=== PATIENT | female | born 2000 | race African-American/Black ===

== ENCOUNTER 2025-10-24 14:07 | Emergency (ER) | payer OTHER, MEDICAID, SELFPAY ==
[2025-10-24 14:27] VITALS: BP 102/67; PULSE 79; RESP 20; TEMP 36.6; O2SAT 100
--- NOTE | 2025-10-24 14:32 | ED.URI ---
HPI - URI/Sore Throat General Chief Complaint: Upper Respiratory Infection Stated Complaint: Sinus/ Source: patient Mode of arrival: ambulatory Limitations: no limitations History of Present Illness HPI Narrative: this is a 25 y/o female that is 14 weeks pregant patient, sees [facility], patient states 3 days she has had nausea and diarrhea yesterday. No vomiting. patient reports having been able to keep liquids down yesterday and was able to eat chicken last pm, she was then able to eat some noodles late/early am. she states she did not have any diarrhea since yesterday afternoon. patient reports she is doing otherwise ok. No vaginal discharge, no bleeding. she is not nauseated or vomiting. no fever. patient denies any distress at all. She has been able to drink and eat today with no distess. has been feeling baby move. MD elicited complaint: other (nausea and diarrhea) Consistency: constant Severity: mild Exacerbating factors: nothing Relieving factors: nothing Context: sick contacts Associated symptoms: denies other symptoms Treatments prior to arrival: none Related Data Allergies Allergy/AdvReac Type Severity Reaction Status Date / Time No Known Allergies Allergy Verified 10/24/25 14:37 Review of Systems Review of Systems: All systems reviewed & are unremarkable except as noted in HPI and below Exam Const: General: healthy appearing Nutritional Appearance: well nourished Orientation/consciousness: patient oriented x3 Limitations: no limitations HENMT: Head: normal to inspection Ears: external ears normal Face/Nose/Sinus: Normal external nose present Face and sinus: normal facial exam Mouth: Yes Normal oral and palatal mucosa present Teeth and gingiva: dentition normal Throat: posterior oropharynx normal Eyes: Conjunctivae: conjunctivae normal Pupils: Equal, round and reactive pupils present EOM: EOMs intact bilaterally Neck: Neck: normal visual inspection and no lymphadenopathy Chest: Chest palpation & inspection: normal inspection of the chest Resp: Effort & Inspection: normal respiratory effort Auscultation: clear to auscultation bilaterally Cardio: Rate: regular rate Rhythm: regular rhythm GI: GI Palp: Yes Soft to palpation Auscultation: normal bowel sounds : General: Yes bladder normal to palpation Other: fundal height at appropriate height for Back/Spine/Pelvis: Back: no CVA tenderness Skin: General skin exam: normal color Rashes: no rashes Wounds: no wounds Neuro: General: patient oriented x3 Cranial nerves: Yes Nystagmus not present Speech: normal speech Gait exam (Neuro): Normal gait present Extrem: General: normal to inspection and no clubbing, cyanosis or edema Psych: Mental Status: mental status grossly normal Affect: normal affect Attitude: cooperative Course Course Emergency Course: this is a 25 y/o female that is 14 weeks pregant patient, sees [facility], patient states 3 days she has had nausea and diarrhea yesterday. No vomiting. patient reports having been able to keep liquids down yesterday and was able to eat chicken last pm, she was then able to eat some noodles late/early am. she states she did not have any diarrhea since yesterday afternoon. patient reports she is doing otherwise ok. No vaginal discharge, no bleeding. she is not nauseated or vomiting. no fever. patient denies any distress at all. She has been able to drink and eat today with no distess. has been feeling baby move. vital signs stable [place] influenza ordered covid and influenza negative educated on gastroenteritis, continuing to push fluids, avoid heavy greasy foods for the next 24-48 hours. follow up with OBGYN in the next 2 days. Follow up with her primary as needed. Rest often. Continue Zofran only as needed for nausea and vomiting. Return to the emergency department any worrisome sign or symptom answered all questions to their satisfaction they are agreeable to plan. Level of Care: Express Care Visit Vital Signs Vital signs: Vital Signs Temperature 97.8 F 10/24/25 14: Pulse Rate 79 10/24/25 14:27 Respiratory Rate 20 10/24/25 14:27 Blood Pressure 102/67 10/24/25 14:27 Pulse Oximetry 100 10/24/25 14:27 Oxygen Delivery Room Air 10/24/25 14:27 Temperature 97.8 F 10/24/25 14:27 Pulse Rate 79 10/24/25 14:27 Respiratory Rate 20 10/24/25 14:27 Blood Pressure 102/67 10/24/25 14:27 Pulse Oximetry 100 10/24/25 14:27 Oxygen Delivery Room Air 10/24/25 14:27 MDM MDM Narrative Medical decision making narrative: this is a 25 y/o female that is 14 weeks pregant patient, sees [facility], patient states 3 days she has had nausea and diarrhea yesterday. No vomiting. patient reports having been able to keep liquids down yesterday and was able to eat chicken last pm, she was then able to eat some noodles late/early am. she states she did not have any diarrhea since yesterday afternoon. patient reports she is doing otherwise ok. No vaginal discharge, no bleeding. she is not nauseated or vomiting. no fever. patient denies any distress at all. She has been able to drink and eat today with no distess. has been feeling baby move. vital signs stable [place] influenza ordered covid and influenza negative educated on gastroenteritis, continuing to push fluids, avoid heavy greasy foods for the next 24-48 hours. follow up with OBGYN in the next 2 days. Follow up with her primary as needed. Rest often. Continue Zofran only as needed for nausea and vomiting. Return to the emergency department any worrisome sign or symptom answered all questions to their satisfaction they are agreeable to plan. Differential Diagnosis Differential Diagnosis: Viral gastroenteritis, influenza , COVID Medical Records I have reviewed the following patient records and this information was taken into consideration when formulating the assessment and plan.: previous labs and previous clinic visits Lab Data MDM Lab Attestation statement: I personally reviewed the patient's lab results. Lab results narrative: COVID negative Influenza a and B negative Discharge Plan Discharge Clinical Impression: Diarrhea Qualifiers: Diarrhea type: unspecified type Qualified Code(s): R19.7 - Diarrhea, unspecified Nausea & vomiting Qualifiers: Vomiting type: unspecified Qualified Code(s): R11.2 - Nausea with vomiting, unspecified Patient Disposition: Home Condition: Stable Instructions: Nausea and Vomiting in (ED), Acute Diarrhea (ED) Additional Instructions: continuing to push fluids, avoid heavy greasy foods for the next 24-48 hours. follow up with OBGYN in the next 2 days. Follow up with her primary as needed. Rest often. Continue Zofran only as needed for nausea and vomiting. Return to the emergency department any worrisome sign or symptom Patient Language: [place]an Prescriptions: New ondansetron 4 mg tablet,disintegrating 4 mg PO Q8H PRN (Reason: nausea and vomiting) Qty: 12 0RF Follow-up/Referrals: PHYSICIAN NOT ON STAFF,NONSTAFF [Primary Care Provider] Time of Disposition: 14:51
[2025-10-24 14:51] LABS: EDCOVIDSCREEN Negative (Negative); EDINFLUASCREEN Negative (Negative); EDINFLUBSCREEN Negative (Negative)
== END 2025-10-24 14:55 | disposition home or self-care (01) ==
PROVIDERS: Emergency Provider Nurse Practitioner Family
DX: O21.9 Vomiting of pregnancy, unspecified (principal); O99.891 Other specified diseases and conditions complicating pregnancy; R19.7 Diarrhea, unspecified; Z3A.14 14 weeks gestation of pregnancy; Z20.822 Contact with and (suspected) exposure to COVID-19
CPT/HCPCS: 87426; 87804; 99203; G0463